=== PATIENT | male | born 1990 | race Caucasian/White ===

== ENCOUNTER 2018-06-08 14:43 | Emergency (ER) | payer OTHER, MEDICAID, SELFPAY ==
--- NOTE | 2018-06-08 14:46 | ED.ABDPAIN ---
HPI - Abdominal Pain <CASTRO Kerns - Last Filed: 06/08/18 22:22> General Chief Complaint: Abdominal Pain Stated Complaint: left side swelling and pain,no injury Time Seen by Provider: 06/08/18 14:46 History of Present Illness HPI narrative: 28-year-old healthy male here for complaint of left-sided abdominal pain over the last couple of days. He reports that he did have some diarrhea yesterday however this has resolved. No nausea or vomiting. No fevers no chills. He denies any trauma to the abdominal wall. He is tolerating p.o. intake as of today. Last bowel movement was earlier today and was normal. No urinary symptoms. No other concerns or complaints. He denies any recent travels. MD complaint: abdominal pain Related Data Home Medications Medication Instructions Recorded Confirmed No Known Home Medications 06/08/18 06/08/18 Allergies Allergy/AdvReac Type Severity Reaction Status Date / Time No Known Drug Allergies Allergy Verified 06/08/18 14:53 Review of Systems <CASTRO Kerns - Last Filed: 06/08/18 22:22> Constitutional Denies chills, Denies fever(s), Denies lethargy and Denies weakness Eyes Denies change in vision, Denies eye discharge, Denies irritation and Denies loss of vision ENT Ears, Nose, Mouth, and Throat: Denies change in voice, Denies neck pain and Denies sore throat Cardiovascular Denies chest pain, Denies irregular heart rhythm, Denies lightheadedness, Denies palpitations, Denies dyspnea, Denies dyspnea on exertion and Denies orthopnea Respiratory Denies cough, Denies dyspnea, Denies dyspnea on exertion and Denies wheezing Gastrointestinal Gastrointestinal: Reports abdominal pain and Reports diarrhea Genitourinary Denies hematuria, Denies flank pain, Denies urinary incontinence and Denies urinary urgency Musculoskeletal Denies neck pain Integumentary/Breasts Denies pruritus, Denies erythema, Denies rash and Denies wounds Neurologic Denies confusion, Denies loss of vision and Denies weakness Psychiatric Denies anxiety, Denies confusion, Denies depression, Denies homicidal ideation and Denies suicidal ideation Endocrine Denies palpitations Hematologic/Lymphatic Denies easy bruising Allergic/Immunologic Denies wheezing Exam <CASTRO Kerns - Last Filed: 06/08/18 22:22> Initial Vital Signs Initial Vital Signs: Vital Signs Temperature 98.2 F 06/08/18 14:48 Pulse Rate 91 H 06/08/18 14:48 Respiratory Rate 16 06/08/18 14:48 Blood Pressure 144/93 H 06/08/18 14:48 Pulse Oximetry 97 06/08/18 14:48 Const General: cooperative and well developed Nutritional Appearance: well nourished Orientation: alert, awake, oriented x3 and not confused [facility] Mouth: oral mucosae normal and moist mucous membranes Eyes General: appearance normal, both eyes and all related structures Eyelids: eyelids normal Conjunctivae: conjunctivae normal Sclera: sclerae normal Pupils: PERRL EOM: EOM intact bilaterally Resp Effort & Inspection: normal respiratory effort, able to speak in complete sentences, no respiratory distress and no use of accessory muscles Auscultation: clear to auscultation bilaterally, no rales, no rhonchi and no wheezes Cardio Rate: regular rate Rhythm: regular rhythm Heart Sounds: no click, no gallops, no murmurs and no rubs Pulses: normal peripheral pulses GI Inspection: non-distended Palpation: soft, no hepatosplenomegaly, No guarding, No pulsatile mass and tender (Tenderness to left upper and left lower quadrant on palpation) Auscultation: normal bowel sounds Skin General: no rashes or lesions noted, No jaundice and No petechiae <Ryan Renteria DO - Last Filed: 06/09/18 07:22> Initial Vital Signs Initial Vital Signs: Vital Signs Temperature 98.2 F 06/08/18 14:48 Pulse Rate 91 H 06/08/18 14:48 Respiratory Rate 16 06/08/18 14:48 Blood Pressure 144/93 H 06/08/18 14:48 Pulse Oximetry 97 06/08/18 14:48 Course <CASTRO Kerns - Last Filed: 06/08/18 22:22> Orders Ordered: Discontinued Medications Sodium Chloride (Normal Saline 0.9%) 1,000 mls @ 1,000 mls/hr IV BOLUS ONE Stop: 06/08/18 16:04 Last Infusion: 06/08/18 16:28 Dose: 0 mls/hr Admin: 06/08/18 15:27 Dose: 1,000 mls/hr Vital Signs - 8 hr 06/08/18 14:48 06/08/18 15:30 06/08/18 16:28 Temperature 98.2 F Pulse Rate 91 H 73 61 Respiratory Rate 16 17 18 Blood Pressure 144/93 H 135/91 H Blood Pressure [Left Arm] 140/94 H Pulse Oximetry 97 100 100 <Ryan Renteria DO - Last Filed: 06/09/18 07:22> Orders Ordered: Discontinued Medications Sodium Chloride (Normal Saline 0.9%) 1,000 mls @ 1,000 mls/hr IV BOLUS ONE Stop: 06/08/18 16:04 Last Infusion: 06/08/18 16:28 Dose: 0 mls/hr Admin: 06/08/18 15:27 Dose: 1,000 mls/hr Vital Signs - 8 hr 06/08/18 14:48 06/08/18 15:30 06/08/18 16:28 Temperature 98.2 F Pulse Rate 91 H 73 61 Respiratory Rate 16 17 18 Blood Pressure 144/93 H 135/91 H Blood Pressure [Left Arm] 140/94 H Pulse Oximetry 97 100 100 MDM - Abdominal Pain <CASTRO Kerns - Last Filed: 06/08/18 22:22> Lab Data Result diagrams: 06/08/18 15:20 06/08/18 15:20 Lab Results 06/08/18 06/08/18 Range/Units 15:20 15:20 WBC 8.2 (4.5-11.0) X10^3/uL RBC 4.88 (4.5-5.9) X10^6/uL Hgb 15.5 (13.5-17.5) g/dL Hct 44.3 (41-53) % MCV 90.9 (80-100) fL MCH 31.8 (26-34) PG MCHC 35.0 (30-36) % RDW 12.5 (11.6-14.8) % Plt Count 262 (150-400) X10^3/uL Neut % (Auto) 61.5 (50-75) % Lymph % (Auto) 28.2 (25-40) % [place] % (Auto) 7.4 (3-14) % Eos % (Auto) 2.2 (2-4) % Baso % (Auto) 0.7 (0-2) % Neut # (Auto) 5100 (1903-0785) /uL Sodium 142 (137-145) mmol/L Potassium 4.1 (3.4-5.1) mmol/L Chloride 103 (98-107) mmol/L Carbon Dioxide 26 (22-32) mmol/L BUN 12 (9-20) mg/dL Creatinine 0.90 (0.66-1.25) mg/dL Estimated GFR > 60.0 (>60) mL/min BUN/Creatinine Ratio 13.3 (6-22) Glucose 102 H (70-100) mg/dL Calcium 9.6 (8.4-10.2) mg/dL Total Bilirubin 0.6 (0.2-1.3) mg/dL AST 29 (17-59) IU/L ALT 45 (21-72) IU/L Alkaline Phosphatase 58 (38-126) U/L Total Protein 7.4 (6.3-8.2) g/dL Albumin 4.7 (3.5-5.0) g/dL Globulin 2.7 (1.7-4.1) g/dL Albumin/Globulin Ratio 1.7 (1.0-2.8) Lipase 325 H (23-300) U/L Point of care testing: Urine Dip Bedside Urine Glucose Negative Bedside Urine Bilirubin - Negative Bedside Urine Ketone - Negative Urine Specific [place] 1.015 Bedside Urine Occult Blood - Negative Bedside Urine pH 6.0 Bedside Urine Protein - Negative Bedside Urine Urobilinogen - Negative Bedside Urine Nitrite - Negative Bedside Urine Leukocytes - Negative Esterase Imaging Data CT scan - abdomen: Radiologist's impression: MDM Narrative Medical decision making narrative: CBC and Chem panel lipase were obtained were unremarkable. POC urine was negative for urinary tract infection. CT of the abdomen shows mild inflammation of the descending colon signs and symptoms presents as a viral illness. [id number] Tylenol Motrin as needed for any discomfort. Plenty of fluids and rest. Follow up with primary care provider later this week for re-evaluation. For any worsening symptoms return to the emergency room. <Ryan Renteria DO - Last Filed: 06/09/18 07:22> Lab Data Lab Results 06/08/18 06/08/18 Range/Units 15:20 15:20 WBC 8.2 (4.5-11.0) X10^3/uL RBC 4.88 (4.5-5.9) X10^6/uL Hgb 15.5 (13.5-17.5) g/dL Hct 44.3 (41-53) % MCV 90.9 (80-100) fL MCH 31.8 (26-34) PG MCHC 35.0 (30-36) % RDW 12.5 (11.6-14.8) % Plt Count 262 (150-400) X10^3/uL Neut % (Auto) 61.5 (50-75) % Lymph % (Auto) 28.2 (25-40) % [place] % (Auto) 7.4 (3-14) % Eos % (Auto) 2.2 (2-4) % Baso % (Auto) 0.7 (0-2) % Neut # (Auto) 5100 (8956-5559) /uL Sodium 142 (137-145) mmol/L Potassium 4.1 (3.4-5.1) mmol/L Chloride 103 (98-107) mmol/L Carbon Dioxide 26 (22-32) mmol/L BUN 12 (9-20) mg/dL Creatinine 0.90 (0.66-1.25) mg/dL Estimated GFR > 60.0 (>60) mL/min BUN/Creatinine Ratio 13.3 (6-22) Glucose 102 H (70-100) mg/dL Calcium 9.6 (8.4-10.2) mg/dL Total Bilirubin 0.6 (0.2-1.3) mg/dL AST 29 (17-59) IU/L ALT 45 (21-72) IU/L Alkaline Phosphatase 58 (38-126) U/L Total Protein 7.4 (6.3-8.2) g/dL Albumin 4.7 (3.5-5.0) g/dL Globulin 2.7 (1.7-4.1) g/dL Albumin/Globulin Ratio 1.7 (1.0-2.8) Lipase 325 H (23-300) U/L Point of care testing: Urine Dip Bedside Urine Glucose Negative Bedside Urine Bilirubin - Negative Bedside Urine Ketone - Negative Urine Specific [place] 1.015 Bedside Urine Occult Blood - Negative Bedside Urine pH 6.0 Bedside Urine Protein - Negative Bedside Urine Urobilinogen - Negative Bedside Urine Nitrite - Negative Bedside Urine Leukocytes - Negative Esterase Discharge Plan Departure Patient Disposition: Home, Self-Care Clinical Impression: Colitis Discharge Date/Time: 06/08/18 16:30 Interventions: ED Discharge Assessment Last Done: 06/08/18 16:28 Instructions: DI for Abdominal Pain-Adult Activity Restrictions/Additional Instructions: Laboratory results today were unremarkable. CT the abdomen shows mild inflammation to the descending colon indicating colitis most likely viral illness that should resolve on its own. Use [id number] Tylenol or Motrin as needed for any discomfort. Follow up with her primary care provider later this week for re-evaluation. Plenty of fluids and rest. For any worsening symptoms return to the emergency room. Prescriptions: No Action No Known Home Medications RF: 0 Referrals: [facility] [Provider Group] <Ryan Renteria DO - Last Filed: 06/09/18 07:22> Cosjohnathan ED Attending Ch[place] Attestation: I was available for consultation during this patient's emergency department encounter
[2018-06-08 14:48] VITALS: BP 144/93; PULSE 91; RESP 16; TEMP 36.8; O2SAT 97; BMI 22.8
--- NOTE | 2018-06-08 15:05 | DI.CT.S_ITS ---
PROCEDURE: CT ABDOMEN PELVIS W CON INDICATIONS: Left upper and left lower quadrant pain TECHNIQUE: After the administration of intravenous contrast, 5 mm thick sections acquired from the diaphragm to the symphysis. 5 mm coronal and sagittal reformats were acquired. For radiation dose reduction, the following was used: automated exposure control, adjustment of mA and/or kV according to patient size. COMPARISON: None. FINDINGS: Image quality: Excellent. ABDOMEN: Lung bases: Lung bases are clear. Heart size is normal. Solid organs: Liver is normal in size, hypodense in attenuation. Gallbladder is contracted. Biliary system is non dilated. Pancreas enhances normally. Spleen is normal in size and enhancement, 8.5 cm craniocaudal. No adrenal nodules. The right kidney is atrophic with diffuse renal cortical thinning. thinning. The right kidney measures 8.9 cm, the left measures 12.7 cm. No hydronephrosis. No perinephric fat stranding. Peritoneum and bowel: Small bowel loops demonstrate normal wall thickness and caliber. Normal appendix. The descending and rectosigmoid colon shows a mild degree of diffuse wall thickening. No focal fat stranding or diverticular disease. No free fluid or air. Nodes and vessels: No retroperitoneal or mesenteric adenopathy by size criteria. Aorta and inferior vena cava are normal in size. Miscellaneous: No ventral hernias. PELVIS: Genitourinary: Bladder wall thickness is normal. Prostate and seminal vesicles appear normal. Miscellaneous: No inguinal hernias or adenopathy. Bones: No suspicious bony lesions. No vertebral body compression fractures. IMPRESSION: 1. Possible nonspecific colitis from the splenic flexure through the rectosigmoid, all showing non-distention with mild wall thickening and edema. 2. Hepatic steatosis. 3. Mild right renal atrophy. Dictated by: Randal Williamson M.D. on 06/08/2018 at 15:43 Approved by: Randal Williamson M.D. on 06/08/2018 at 15:52
[2018-06-08 15:26] LABS: Add Manual Diff / Slide Review NO; Basophils Percent Auto 0.7 % (0-2); Eosinophils Percent Auto 2.2 % (2-4); Hematocrit 44.3 % (41-53); Hemoglobin 15.5 g/dL (13.5-17.5); Lymphocytes Percent Auto 28.2 % (25-40); Mean Corpuscular Hemoglobin 31.8 PG (26-34); Mean Corpuscular Volume 90.9 fL (80-100); Monocytes Percent Auto 7.4 % (3-14); Neutrophils Absolute Auto 5100 /uL (3000-5900); Neutrophils Percent Auto 61.5 % (50-75); Platelet Count 262 X10^3/uL (150-400); Red Blood Cell Count 4.88 X10^6/uL (4.5-5.9); Red Cell Distribution Width 12.5 % (11.6-14.8); White Blood Cell Count 8.2 X10^3/uL (4.5-11.0)
[2018-06-08] MEDS: SODIUM CHLORIDE 0.9% 1,000 ML 1000 ML IV (15:27)
[2018-06-08 15:30] VITALS: BP 140/94; PULSE 73; RESP 17; O2SAT 100
[2018-06-08 15:56] LABS: Alanine Aminotransferase 45 IU/L (21-72); Albumin 4.7 g/dL (3.5-5.0); Albumin Globulin Ratio 1.7 (1.0-2.8); Alkaline Phosphatase 58 U/L (38-126); Aspartate Aminotransferase 29 IU/L (17-59); BUN Creatinine Ratio 13.3 (6-22); Bilirubin Total 0.6 mg/dL (0.2-1.3); Blood Urea Nitrogen 12 mg/dL (9-20); Calcium 9.6 mg/dL (8.4-10.2); Carbon Dioxide 26 mmol/L (22-32); Chloride 103 mmol/L (98-107); Estimated Glomerular Filt Rate > 60.0 mL/min (>60); Globulin 2.7 g/dL (1.7-4.1); Glucose 102 mg/dL (70-100); HEMOLYSIS < 15 (0-50); Lipase 325 U/L (23-300); Potassium 4.1 mmol/L (3.4-5.1); Sodium 142 mmol/L (137-145); Total Protein 7.4 g/dL (6.3-8.2)
--- NOTE | 2018-06-08 16:08 | ED_ITS ---
HPI - Abdominal Pain <CASTRO Kerns - Last Filed: 06/08/18 22:22> General Chief Complaint: Abdominal Pain Stated Complaint: left side swelling and pain,no injury Time Seen by Provider: 06/08/18 14:46 History of Present Illness HPI narrative: 28-year-old healthy male here for complaint of left-sided abdominal pain over the last couple of days. He reports that he did have some diarrhea yesterday however this has resolved. No nausea or vomiting. No fevers no chills. He denies any trauma to the abdominal wall. He is tolerating p.o. intake as of today. Last bowel movement was earlier today and was normal. No urinary symptoms. No other concerns or complaints. He denies any recent travels. MD complaint: abdominal pain Related Data Home Medications Medication Instructions Recorded Confirmed No Known Home Medications 06/08/18 06/08/18 Allergies Allergy/AdvReac Type Severity Reaction Status Date / Time No Known Drug Allergies Allergy Verified 06/08/18 14:53 Review of Systems <CASTRO Kerns - Last Filed: 06/08/18 22:22> Constitutional Denies chills, Denies fever(s), Denies lethargy and Denies weakness Eyes Denies change in vision, Denies eye discharge, Denies irritation and Denies loss of vision ENT Ears, Nose, Mouth, and Throat: Denies change in voice, Denies neck pain and Denies sore throat Cardiovascular Denies chest pain, Denies irregular heart rhythm, Denies lightheadedness, Denies palpitations, Denies dyspnea, Denies dyspnea on exertion and Denies orthopnea Respiratory Denies cough, Denies dyspnea, Denies dyspnea on exertion and Denies wheezing Gastrointestinal Gastrointestinal: Reports abdominal pain and Reports diarrhea Genitourinary Denies hematuria, Denies flank pain, Denies urinary incontinence and Denies urinary urgency Musculoskeletal Denies neck pain Integumentary/Breasts Denies pruritus, Denies erythema, Denies rash and Denies wounds Neurologic Denies confusion, Denies loss of vision and Denies weakness Psychiatric Denies anxiety, Denies confusion, Denies depression, Denies homicidal ideation and Denies suicidal ideation Endocrine Denies palpitations Hematologic/Lymphatic Denies easy bruising Allergic/Immunologic Denies wheezing Exam <CASTRO Kerns - Last Filed: 06/08/18 22:22> Initial Vital Signs Initial Vital Signs: Vital Signs Temperature 98.2 F 06/08/18 14:48 Pulse Rate 91 H 06/08/18 14:48 Respiratory Rate 16 06/08/18 14:48 Blood Pressure 144/93 H 06/08/18 14:48 Pulse Oximetry 97 06/08/18 14:48 Const General: cooperative and well developed Nutritional Appearance: well nourished Orientation: alert, awake, oriented x3 and not confused [facility] Mouth: oral mucosae normal and moist mucous membranes Eyes General: appearance normal, both eyes and all related structures Eyelids: eyelids normal Conjunctivae: conjunctivae normal Sclera: sclerae normal Pupils: PERRL EOM: EOM intact bilaterally Resp Effort & Inspection: normal respiratory effort, able to speak in complete sentences, no respiratory distress and no use of accessory muscles Auscultation: clear to auscultation bilaterally, no rales, no rhonchi and no wheezes Cardio Rate: regular rate Rhythm: regular rhythm Heart Sounds: no click, no gallops, no murmurs and no rubs Pulses: normal peripheral pulses GI Inspection: non-distended Palpation: soft, no hepatosplenomegaly, No guarding, No pulsatile mass and tender (Tenderness to left upper and left lower quadrant on palpation) Auscultation: normal bowel sounds Skin General: no rashes or lesions noted, No jaundice and No petechiae <Ryan Renteria DO - Last Filed: 06/09/18 07:22> Initial Vital Signs Initial Vital Signs: Vital Signs Temperature 98.2 F 06/08/18 14:48 Pulse Rate 91 H 06/08/18 14:48 Respiratory Rate 16 06/08/18 14:48 Blood Pressure 144/93 H 06/08/18 14:48 Pulse Oximetry 97 06/08/18 14:48 Course <CASTRO Kerns - Last Filed: 06/08/18 22:22> Orders Ordered: Discontinued Medications Sodium Chloride (Normal Saline 0.9%) 1,000 mls @ 1,000 mls/hr IV BOLUS ONE Stop: 06/08/18 16:04 Last Infusion: 06/08/18 16:28 Dose: 0 mls/hr Admin: 06/08/18 15:27 Dose: 1,000 mls/hr Vital Signs - 8 hr 06/08/18 14:48 06/08/18 15:30 06/08/18 16:28 Temperature 98.2 F Pulse Rate 91 H 73 61 Respiratory Rate 16 17 18 Blood Pressure 144/93 H 135/91 H Blood Pressure [Left Arm] 140/94 H Pulse Oximetry 97 100 100 <Ryan Renteria DO - Last Filed: 06/09/18 07:22> Orders Ordered: Discontinued Medications Sodium Chloride (Normal Saline 0.9%) 1,000 mls @ 1,000 mls/hr IV BOLUS ONE Stop: 06/08/18 16:04 Last Infusion: 06/08/18 16:28 Dose: 0 mls/hr Admin: 06/08/18 15:27 Dose: 1,000 mls/hr Vital Signs - 8 hr 06/08/18 14:48 06/08/18 15:30 06/08/18 16:28 Temperature 98.2 F Pulse Rate 91 H 73 61 Respiratory Rate 16 17 18 Blood Pressure 144/93 H 135/91 H Blood Pressure [Left Arm] 140/94 H Pulse Oximetry 97 100 100 MDM - Abdominal Pain <CASTRO Kerns - Last Filed: 06/08/18 22:22> Lab Data Result diagrams: 06/08/18 15:20 06/08/18 15:20 Lab Results 06/08/18 06/08/18 Range/Units 15:20 15:20 WBC 8.2 (4.5-11.0) X10^3/uL RBC 4.88 (4.5-5.9) X10^6/uL Hgb 15.5 (13.5-17.5) g/dL Hct 44.3 (41-53) % MCV 90.9 (80-100) fL MCH 31.8 (26-34) PG MCHC 35.0 (30-36) % RDW 12.5 (11.6-14.8) % Plt Count 262 (150-400) X10^3/uL Neut % (Auto) 61.5 (50-75) % Lymph % (Auto) 28.2 (25-40) % [place] % (Auto) 7.4 (3-14) % Eos % (Auto) 2.2 (2-4) % Baso % (Auto) 0.7 (0-2) % Neut # (Auto) 5100 (4467-5934) /uL Sodium 142 (137-145) mmol/L Potassium 4.1 (3.4-5.1) mmol/L Chloride 103 (98-107) mmol/L Carbon Dioxide 26 (22-32) mmol/L BUN 12 (9-20) mg/dL Creatinine 0.90 (0.66-1.25) mg/dL Estimated GFR > 60.0 (>60) mL/min BUN/Creatinine Ratio 13.3 (6-22) Glucose 102 H (70-100) mg/dL Calcium 9.6 (8.4-10.2) mg/dL Total Bilirubin 0.6 (0.2-1.3) mg/dL AST 29 (17-59) IU/L ALT 45 (21-72) IU/L Alkaline Phosphatase 58 (38-126) U/L Total Protein 7.4 (6.3-8.2) g/dL Albumin 4.7 (3.5-5.0) g/dL Globulin 2.7 (1.7-4.1) g/dL Albumin/Globulin Ratio 1.7 (1.0-2.8) Lipase 325 H (23-300) U/L Point of care testing: Urine Dip Bedside Urine Glucose Negative Bedside Urine Bilirubin - Negative Bedside Urine Ketone - Negative Urine Specific [place] 1.015 Bedside Urine Occult Blood - Negative Bedside Urine pH 6.0 Bedside Urine Protein - Negative Bedside Urine Urobilinogen - Negative Bedside Urine Nitrite - Negative Bedside Urine Leukocytes - Negative Esterase Imaging Data CT scan - abdomen: Radiologist's impression: MDM Narrative Medical decision making narrative: CBC and Chem panel lipase were obtained were unremarkable. POC urine was negative for urinary tract infection. CT of the abdomen shows mild inflammation of the descending colon signs and symptoms presents as a viral illness. [id number] Tylenol Motrin as needed for any discomfort. Plenty of fluids and rest. Follow up with primary care provider later this week for re-evaluation. For any worsening symptoms return to the emergency room. <Ryan Renteria DO - Last Filed: 06/09/18 07:22> Lab Data Lab Results 06/08/18 06/08/18 Range/Units 15:20 15:20 WBC 8.2 (4.5-11.0) X10^3/uL RBC 4.88 (4.5-5.9) X10^6/uL Hgb 15.5 (13.5-17.5) g/dL Hct 44.3 (41-53) % MCV 90.9 (80-100) fL MCH 31.8 (26-34) PG MCHC 35.0 (30-36) % RDW 12.5 (11.6-14.8) % Plt Count 262 (150-400) X10^3/uL Neut % (Auto) 61.5 (50-75) % Lymph % (Auto) 28.2 (25-40) % [place] % (Auto) 7.4 (3-14) % Eos % (Auto) 2.2 (2-4) % Baso % (Auto) 0.7 (0-2) % Neut # (Auto) 5100 (4612-0822) /uL Sodium 142 (137-145) mmol/L Potassium 4.1 (3.4-5.1) mmol/L Chloride 103 (98-107) mmol/L Carbon Dioxide 26 (22-32) mmol/L BUN 12 (9-20) mg/dL Creatinine 0.90 (0.66-1.25) mg/dL Estimated GFR > 60.0 (>60) mL/min BUN/Creatinine Ratio 13.3 (6-22) Glucose 102 H (70-100) mg/dL Calcium 9.6 (8.4-10.2) mg/dL Total Bilirubin 0.6 (0.2-1.3) mg/dL AST 29 (17-59) IU/L ALT 45 (21-72) IU/L Alkaline Phosphatase 58 (38-126) U/L Total Protein 7.4 (6.3-8.2) g/dL Albumin 4.7 (3.5-5.0) g/dL Globulin 2.7 (1.7-4.1) g/dL Albumin/Globulin Ratio 1.7 (1.0-2.8) Lipase 325 H (23-300) U/L Point of care testing: Urine Dip Bedside Urine Glucose Negative Bedside Urine Bilirubin - Negative Bedside Urine Ketone - Negative Urine Specific [place] 1.015 Bedside Urine Occult Blood - Negative Bedside Urine pH 6.0 Bedside Urine Protein - Negative Bedside Urine Urobilinogen - Negative Bedside Urine Nitrite - Negative Bedside Urine Leukocytes - Negative Esterase Discharge Plan Departure Patient Disposition: Home, Self-Care Clinical Impression: Colitis Discharge Date/Time: 06/08/18 16:30 Interventions: ED Discharge Assessment Last Done: 06/08/18 16:28 Instructions: DI for Abdominal Pain-Adult Activity Restrictions/Additional Instructions: Laboratory results today were unremarkable. CT the abdomen shows mild inflammation to the descending colon indicating colitis most likely viral illness that should resolve on its own. Use [id number] Tylenol or Motrin as needed for any discomfort. Follow up with her primary care provider later this week for re-evaluation. Plenty of fluids and rest. For any worsening symptoms return to the emergency room. Prescriptions: No Action No Known Home Medications RF: 0 Referrals: [facility] [Provider Group] <Ryan Renteria DO - Last Filed: 06/09/18 07:22> Cosjohnathan ED Attending [place] Attestation: I was available for consultation during this patient's emergency department encounter
[2018-06-08 16:28] VITALS: BP 135/91; PULSE 61; RESP 18; O2SAT 100
== END 2018-06-08 16:30 | disposition home or self-care (01) ==
PROVIDERS: Emergency Provider Nurse Practitioner Family
DX: K52.9 Noninfective gastroenteritis and colitis, unspecified (principal)
CPT/HCPCS: 36591; 74177; 80053; 81003; 83690; 85025; 96360; 99283; 99285; Q9967

== ENCOUNTER 2023-02-23 20:48 | Inpatient (IN) | payer OTHER, MEDICAID, SELFPAY ==
[2023-02-23] VITALS (11 sets, daily range): BP systolic 147–204; BP diastolic 96–101; PULSE 91–126; RESP 16–38; TEMP 36.6; O2SAT 92–100
[2023-02-23] MEDS: ALBUTEROL/IPRATROPIUM 3 ML AMPUL INH ×3 (21:09)
--- NOTE | 2023-02-23 21:10 | DI.RAD.S_ITS ---
PROCEDURE: XR CHEST 1V INDICATIONS: SOB TECHNIQUE: One view of the chest was acquired. COMPARISON: None. FINDINGS: Surgical changes and devices: None. Lungs and pleura: Lungs are clear. There is hyperinflation of the lungs with flattening of the hemidiaphragms compatible with COPD. No pleural effusions or pneumothorax. Mediastinum: Mediastinal contours appear normal. Heart size is normal. Bones and chest wall: No suspicious bony lesions. Overlying soft tissues appear unremarkable. IMPRESSION: 1. No acute cardiopulmonary disease. 2. Findings compatible with COPD. Dictated by: [place] S[place] M.D. on 02/23/2023 at 21:25 Approved by: [place] Sanches M.D. on 02/23/2023 at 21:25
--- NOTE | 2023-02-23 21:11 | ED_ITS ---
HPI - General Adult General Chief complaint: Shortness of Breath/Dyspnea Stated complaint: Difficulty breathing Time Seen by Provider: 02/23/23 21:06 Source: patient Mode of arrival: Ambulatory Limitations: no limitations History of Present Illness HPI narrative: Patient is a 32-year-old male. States that he does have a history of asthma but has not had any issues with it for some time. He states he was ?born with it?. Three days of shortness of breath with cough and chest discomfort. Has not tried anything for symptoms. No lower extremity swelling. No recent travel. No recent antibiotics. Related Data Home Medications Medication Instructions Recorded Confirmed No Known Home Medications 06/08/18 06/08/18 Allergies Allergy/AdvReac Type Severity Reaction Status Date / Time No Known Drug Allergies Allergy Verified 06/08/18 14:53 Review of Systems Review of Systems ROS Unobtainable: All systems reviewed & are unremarkable except as noted in HPI and below Respiratory Respiratory: Reports system reviewed and no additional complaints, except as documented Patient History Social History Smoking Status: Current every day smoker Smoking Status: Current every day smoker alcohol intake frequency: a few times a week Substance Use Type: marijuana Exam Initial Vital Signs Initial Vital Signs: Vital Signs Respiratory Rate 35 H 02/23/23 21:05 Pulse Oximetry 92 02/23/23 21:05 Oxygen Delivery Method Room Air 02/23/23 21:05 Const General: cooperative and No ill appearing HENMT Head: normal to inspection and normocephalic Resp Effort & Inspection: labored, no retractions and tachypneic Auscultation: diminished lung sounds, rhonchi and wheezes Cardio Rate: regular rate Rhythm: regular rhythm GI Inspection: normal to inspection Skin General: no rashes or lesions noted Neuro General: patient alert, patient awake and moves all extremities Extrem General: normal to inspection and capillary refill normal Psych Appearance: grossly normal and well kempt Course Orders Ordered: ED Orders 02/23/23 21:10 XR chest 1V Stat EKG-12 Lead Stat RT Consult Eval and Treat Now 02/23/23 21:15 Complete Blood Count AUTO DIFF Stat Comprehensive Metabolic Panel Stat Lipase Stat Procalcitonin Stat Troponin & CK Cardiac Panel Stat 02/23/23 21:25 Respiratory Panel (Film Array) Stat 02/23/23 23:30 CT angio chest PE protocol Stat 02/24/23 00:08 Blood Culture Stat 02/24/23 00:21 Sputum Culture Stat Discontinued Medications Albuterol (Albuterol 2.5 Mg/3 Ml Neb (Adult)) 20 mg INH NOW ONE Stop: 02/23/23 21:27 Last Admin: 02/23/23 21:35 Dose: 20 mg Documented By: KEYSHA Albuterol/Ipratropium (Albuterol/Ipratropium 3 Ml Ampul) 3 ml INH NOW ONE Stop: 02/23/23 21:10 Last Admin: 02/23/23 21:09 Dose: 3 ml Documented By: SERGEY Albuterol/Ipratropium (Albuterol/Ipratropium 3 Ml Ampul) 3 ml INH NOW ONE Stop: 02/23/23 21:11 Last Admin: 02/23/23 21:09 Dose: 3 ml Documented By: SERGEY Albuterol/Ipratropium (Albuterol/Ipratropium 3 Ml Ampul) 3 ml INH NOW ONE Stop: 02/23/23 21:11 Last Admin: 02/23/23 21:09 Dose: 3 ml Documented By: SERGEY Magnesium Sulfate (Magnesium Sulfate) 2 gm in 50 mls @ 25 mls/hr IV NOW ONE Stop: 02/23/23 23:37 Last Infusion: 02/23/23 23:26 Dose: 0 mls/hr Documented By: NEREIDA Co-signed By: AYANNA Admin: 02/23/23 21:45 Dose: 25 mls/hr Documented By: IVORY Co-signed By: AMOL Lorazepam (Lorazepam 2 Mg/Ml Inj) 1 mg IV NOW ONE Stop: 02/23/23 21:41 Last Admin: 02/23/23 21:45 Dose: 1 mg Documented By: IVORY Lorazepam (Lorazepam 2 Mg/Ml Inj) 1 mg IV NOW ONE Stop: 02/23/23 22:06 Last Admin: 02/23/23 22:10 Dose: 1 mg Documented By: NEREIDA Methylprednisolone (Methylprednisolone 125 Mg/2 Ml Vial) 125 mg IV NOW ONE Stop: 02/23/23 21:10 Last Admin: 02/23/23 21:14 Dose: 125 mg Documented By: IVORY Vital Signs Vital signs: Vital Signs - 8 hr 02/23/23 21:09 02/23/23 21:05 02/23/23 21:15 Temperature 98 F Pulse Rate 91 H 91 H Respiratory Rate 24 35 H 34 H Blood Pressure 152/99 H Pulse Oximetry 94 92 92 Oxygen Delivery Method Room Air Room Air Room Air Oxygen Flow Rate 0 Fraction of Inspired Oxygen 21 02/23/23 21:54 02/23/23 21:18 02/23/23 21:30 Temperature Pulse Rate 96 H 96 H Respiratory Rate 30 H 26 H Blood Pressure Pulse Oximetry 96 95 Oxygen Delivery Method BiPAP Oxygen Flow Rate Fraction of Inspired Oxygen 40 02/23/23 21:49 02/23/23 21:49 02/23/23 22:00 Temperature Pulse Rate 113 H 115 H Respiratory Rate 29 H 31 H Blood Pressure 204/98 H Pulse Oximetry 100 95 Oxygen Delivery Method BiPAP Oxygen Flow Rate Fraction of Inspired Oxygen 02/23/23 22:20 02/23/23 22:23 02/23/23 22:23 Temperature Pulse Rate 126 H Respiratory Rate 38 H Blood Pressure 147/96 H Pulse Oximetry 94 Oxygen Delivery Method Oxygen Flow Rate Fraction of Inspired Oxygen 80 02/23/23 22:30 02/23/23 22:30 02/23/23 23:00 Temperature Pulse Rate 124 H Respiratory Rate 33 H Blood Pressure 152/96 H 149/101 H Pulse Oximetry 96 Oxygen Delivery Method Oxygen Flow Rate Fraction of Inspired Oxygen 02/23/23 23:00 Temperature Pulse Rate 123 H Respiratory Rate 30 H Blood Pressure Pulse Oximetry 97 Oxygen Delivery Method BiPAP Oxygen Flow Rate Fraction of Inspired Oxygen Medical Decision Making Lab Data 02/23/23 21:15 02/23/23 21:15 Labs: Lab Results 02/23/23 02/23/23 02/23/23 Range/Units 21:15 21:15 21:15 WBC 11.8 H (4.5-11.0) X10^3/uL RBC 5.35 (4.5-5.9) X10^6/uL Hgb 16.2 (13.5-17.5) g/dL Hct 47.7 (41-53) % MCV 89.2 (80-100) fL MCH 30.3 (26-34) PG MCHC 33.9 (30-36) % RDW 13.1 (11.6-14.8) % Plt Count 334 (150-400) X10^3/uL Neut % (Auto) 56.9 (50-75) % Lymph % (Auto) 22.8 L (25-40) % [place] % (Auto) 8.7 (3-14) % Eos % (Auto) 11.1 H (2-4) % Baso % (Auto) 0.5 (0-2) % Neut # (Auto) 6700 (0816-9443) /uL Lymph # (Auto) 2700 (3915-5007) /uL [place] # (Auto) 1000 H (0-900) /uL Eos # (Auto) 1300 H (0-450) /uL Baso # (Auto) 100 (0-100) /uL Sodium 141 (137-145) mmol/L Potassium 3.5 (3.4-5.1) mmol/L Chloride 102 (98-107) mmol/L Carbon Dioxide 26 (22-32) mmol/L BUN 8 L (9-20) mg/dL Creatinine 0.95 (0.66-1.25) mg/dL Estimated GFR > 60 (>60) mL/min BUN/Creatinine Ratio 8.4 (6-22) Glucose 100 (70-100) mg/dL Calcium 9.2 (8.4-10.2) mg/dL Total Bilirubin 0.7 (0.2-1.3) mg/dL AST 24 (17-59) IU/L ALT 23 (<50) IU/L Alkaline Phosphatase 72 (38-126) U/L Total Creatine Kinase 106 (55-170) U/L CK-MB (CK-2) 0.93 (<2.37) ng/mL CK-MB (CK-2) Rel Index 0.9 L (1.5-5.0) % Troponin I < 0.012 (0.01-0.034) ng/mL Total Protein 8.1 (6.3-8.2) g/dL Albumin 4.8 (3.5-5.0) g/dL Globulin 3.3 (1.7-4.1) g/dL Albumin/Globulin Ratio 1.5 (1.0-2.8) Lipase 61 (23-300) U/L Procalcitonin 0.06 (<0.5) ng/mL Chlamy pneumoniae PCR (Not Detect) Adenovirus (PCR) (Not Detect) B. pertussis DNA (PCR) (Not Detecte) B.parapertussis DNA PCR (Not Detecte) Coronavirus OC43 (PCR) (Not Detect) Coronavirus HKU1 (PCR) (Not Detect) Coronavirus 229E (PCR) (Not Detect) SARS-CoV-2 (PCR) (Not Detecte) Coronavirus NL63 (PCR) (Not Detect) Human Metapneumovir PCR (Not Detect) Influenza Type A (PCR) (Not Detect) Influenza Type B (PCR) (Not Detect) M. pneumoniae (PCR) (Not Detect) Parainfluenza 1 (PCR) (Not Detect) Parainfluenza 2 (PCR) (Not Detect) Parainfluenza 3 (PCR) (Not Detect) Parainfluenza 4 (PCR) (Not Detect) RSV (PCR) (Not Detect) Entero/Rhino (PCR) (Not Detect) 02/23/23 Range/Units 21:25 WBC (4.5-11.0) X10^3/uL RBC (4.5-5.9) X10^6/uL Hgb (13.5-17.5) g/dL Hct (41-53) % MCV (80-100) fL MCH (26-34) PG MCHC (30-36) % RDW (11.6-14.8) % Plt Count (150-400) X10^3/uL Neut % (Auto) (50-75) % Lymph % (Auto) (25-40) % [place] % (Auto) (3-14) % Eos % (Auto) (2-4) % Baso % (Auto) (0-2) % Neut # (Auto) (1308-1791) /uL Lymph # (Auto) (9894-8094) /uL [place] # (Auto) (0-900) /uL Eos # (Auto) (0-450) /uL Baso # (Auto) (0-100) /uL Sodium (137-145) mmol/L Potassium (3.4-5.1) mmol/L Chloride (98-107) mmol/L Carbon Dioxide (22-32) mmol/L BUN (9-20) mg/dL Creatinine (0.66-1.25) mg/dL Estimated GFR (>60) mL/min BUN/Creatinine Ratio (6-22) Glucose (70-100) mg/dL Calcium (8.4-10.2) mg/dL Total Bilirubin (0.2-1.3) mg/dL AST (17-59) IU/L ALT (<50) IU/L Alkaline Phosphatase (38-126) U/L Total Creatine Kinase (55-170) U/L CK-MB (CK-2) (<2.37) ng/mL CK-MB (CK-2) Rel Index (1.5-5.0) % Troponin I (0.01-0.034) ng/mL Total Protein (6.3-8.2) g/dL Albumin (3.5-5.0) g/dL Globulin (1.7-4.1) g/dL Albumin/Globulin Ratio (1.0-2.8) Lipase (23-300) U/L Procalcitonin (<0.5) ng/mL Chlamy pneumoniae PCR Not detected (Not Detect) Adenovirus (PCR) Not detected (Not Detect) B. pertussis DNA (PCR) Not detected (Not Detecte) B.parapertussis DNA PCR Not detected (Not Detecte) Coronavirus OC43 (PCR) Not detected (Not Detect) Coronavirus HKU1 (PCR) Not detected (Not Detect) Coronavirus 229E (PCR) Not detected (Not Detect) SARS-CoV-2 (PCR) Not detected (Not Detecte) Coronavirus NL63 (PCR) Not detected (Not Detect) Human Metapneumovir PCR Not detected (Not Detect) Influenza Type A (PCR) Not detected (Not Detect) Influenza Type B (PCR) Not detected (Not Detect) M. pneumoniae (PCR) Not detected (Not Detect) Parainfluenza 1 (PCR) Not detected (Not Detect) Parainfluenza 2 (PCR) Not detected (Not Detect) Parainfluenza 3 (PCR) Not detected (Not Detect) Parainfluenza 4 (PCR) Not detected (Not Detect) RSV (PCR) Not detected (Not Detect) Entero/Rhino (PCR) Detected H (Not Detect) Imaging Data Chest x-ray: Radiologist's Impression: PROCEDURE:? XR CHEST 1V ? INDICATIONS:? SOB ? TECHNIQUE:? One view of the chest was acquired.? ? COMPARISON:? None. ? FINDINGS:? ? Surgical changes and devices:? None.? ? Lungs and pleura:? Lungs are clear. There is hyperinflation of the lungs with flattening of the hemidiaphragms compatible with COPD. ? No pleural effusions or pneumothorax.? ? Mediastinum:? Mediastinal contours appear normal.? Heart size is normal.? ? Bones and chest wall:? No suspicious bony lesions.? Overlying soft tissues appear unremarkable.? ? IMPRESSION:? ? 1.? No acute cardiopulmonary disease. ? 2. Findings compatible with COPD CT scan - chest: Radiologist's Impression: PROCEDURE:? CT ANGIO CHEST PE PROTOCOL ? INDICATIONS:? SOB with hypoxia and recent surgery ? TECHNIQUE:? After the administration of intravenous contrast, 2 mm thick sections acquired from the pulmonary apices to the posterior costophrenic angles.? 3-dimensional maximum in tensity projection (MIP) coronal and sagittal reformats were then acquired through the thorax.? For radiation dose reduction, the following was used:? automated exposure control, adjustment of mA and/or kV according to patient size.? ? COMPARISON:? None. ? FINDINGS:? Image quality:? There is motion artifact limiting evaluation.? ? Pulmonary arteries:? Pulmonary arteries are normal in size, and demonstrate no intraluminal filling defects to suggest central pulmonary embolism.? ? Lower Neck: No lymphadenopathy by size criteria. Thyroid:? Visualized thyroid demonstrates no discrete nodules. Axillae: No lymphadenopathy by size criteria. Chest Wall:? Unremarkable.? Bones: Visualized osseous structures demonstrate no suspicious lesions. ? Lungs and Airways:? There are patchy indistinct areas of ground-glass opacity in the lungs bilaterally.? The trachea and central airways are patent. Pleura: No pneumothorax or pleural effusions.? ? Heart: Heart size is normal.? No pericardial effusion. Thoracic Vessels: The thoracic aorta is normal in size.? Mediastinum and Tatyana: No lymphadenopathy by size criteria.? There is residual thymus in the anterior mediastinum. Esophagus: No wall thickening. No hiatal hernia. ? Abdomen:? Visualized upper abdominal solid organs appear normal in the early arterial phase of enhancement.? ? IMPRESSION:? ? 1. No evidence of pulmonary embolism. ? 2. No acute airspace consolidation.? MDM Narrative Medical decision making narrative: Patient arrived in significant respiratory distress. Oxygen saturations were in the low 90s. Had coarse breath sounds bilateral with wheezing. Could not speak in complete sentences. States he does have a history of asthma but has not had any issues for quite a long time. He recently had a orthopedic procedure performed but that was several weeks ago. He is having chest discomfort. Symptoms been going on for the past couple days. No fevers. Patient initially improved somewhat with nebulizer treatments although while he was receiving nebulizer treatments he did become somewhat worse. He was placed on BiPAP. He did have quite a bit of anxiety. Was given Ativan. He tolerated the BiPAP very well. The Ativan seemed to work as well. He is receiving continuous nebulizer treatments. He is already received 3 DuoNebs. Has been administered steroids. Was given 2 g of magnesium. His respiratory panel was positive for rhino virus. No antibiotics were administered. While he was on the BiPAP he stated that he felt much better. The continuous nebulizer was taking quite a bit of time to improve. He was taken off of the BiPAP and the nebulizer was continued. Shortly after he was taken off the BiPAP his oxygen saturations dropped down to the mid to high 80s. He still stated that he felt much better than when he came in. He was then placed on heated high-flow along with receiving the nebulizer treatment. His oxygen saturations are now greater than 92%. Given his presenting symptoms and the lack of a asthma attack in many years CT scan was performed. This did not show any signs of pulmonary embolism nor focal consolidation. Given the fact that he is still requiring oxygen by high-flow nasal cannula patient does require admission to the hospital. I discussed the case with ROXANE Kolb the night hospitalist who will admit. I discussed the need for admission with the patient and family at bedside. They expressed und erstanding and agreement as well. Critical Care Time Critical Care Time Critical Care Time: Yes Total Critical Care Time: 40 Attestation: The high probability of a clinically significant, sudden or life threatening deterioration of the [respiratory] system(s) required my full and direct attention, intervention and personal management. The aggregate critical care time was [40] minutes. This time is in addition to time spent performing reported procedures but includes the following: [x] Data Review and interpretation [x] Patient assessment and monitoring of vital signs [x] Documentation [x] Medication orders and management Discharge Plan Departure Patient Disposition: Admitted As Inpatient Clinical Impression: Asthma with exacerbation, Rhinovirus infection, Hypoxia Admit Date/Time: 02/24/23 00:31 Admit Provider: Abiola Kolb
[2023-02-23] MEDS: methylPREDNISolone 125 MG/2 ML VIAL IV (21:14)
[2023-02-23 21:30] LABS: Add Manual Diff / Slide Review NO; Basophils Absolute Auto 100 /uL (0-100); Basophils Percent Auto 0.5 % (0-2); Eosinophils Absolute Auto 1300 /uL (0-450); Eosinophils Percent Auto 11.1 % (2-4); Hematocrit 47.7 % (41-53); Hemoglobin 16.2 g/dL (13.5-17.5); Lymphocytes Absolute Auto 2700 /uL (1100-4500); Lymphocytes Percent Auto 22.8 % (25-40); Mean Corpuscular HGB Conc 33.9 % (30-36); Mean Corpuscular Hemoglobin 30.3 PG (26-34); Mean Corpuscular Volume 89.2 fL (80-100); Monocytes Absolute Auto 1000 /uL (0-900); Monocytes Percent Auto 8.7 % (3-14); Neutrophils Absolute Auto 6700 /uL (1500-7000); Neutrophils Percent Auto 56.9 % (50-75); Platelet Count 334 X10^3/uL (150-400); Red Blood Cell Count 5.35 X10^6/uL (4.5-5.9); Red Cell Distribution Width 13.1 % (11.6-14.8); White Blood Cell Count 11.8 X10^3/uL (4.5-11.0)
[2023-02-23 21:34] LABS: Alanine Aminotransferase 23 IU/L (<50); Albumin 4.8 g/dL (3.5-5.0); Albumin Globulin Ratio 1.5 (1.0-2.8); Alkaline Phosphatase 72 U/L (38-126); Aspartate Aminotransferase 24 IU/L (17-59); BUN Creatinine Ratio 8.4 (6-22); Bilirubin Total 0.7 mg/dL (0.2-1.3); Blood Urea Nitrogen 8 mg/dL (9-20); Calcium 9.2 mg/dL (8.4-10.2); Carbon Dioxide 26 mmol/L (22-32); Chloride 102 mmol/L (98-107); Creatine Kinase 106 U/L (55-170); Estimated Glomerular Filt Rate > 60 mL/min (>60); Globulin 3.3 g/dL (1.7-4.1); Glucose 100 mg/dL (70-100); HEMOLYSIS < 15 (0-50); Lipase 61 U/L (23-300); Potassium 3.5 mmol/L (3.4-5.1); Sodium 141 mmol/L (137-145); Total Protein 8.1 g/dL (6.3-8.2)
[2023-02-23] MEDS: ALBUTEROL 2.5 MG/3 ML NEB (ADULT) 20 MG INH (21:35)
[2023-02-23] MEDS: MAGNESIUM SULFATE 2 GM/50 ML PIGGYBACK IV (21:45)
[2023-02-23] MEDS: LORazepam 2 MG/ML INJ 1 MG IV ×2 (21:45→22:10)
[2023-02-23 21:46] LABS: Troponin I < 0.012 ng/mL (0.01-0.034)
[2023-02-23 21:50] LABS: CKMB % Relative Index 0.9 % (1.5-5.0); Creatine Kinase MB 0.93 ng/mL (<2.37); Procalcitonin 0.06 ng/mL (<0.5)
--- NOTE | 2023-02-23 21:55 | PC.NURSE ---
Patient continues to tripod with difficulty breathing. BiPap placed on patient, ativan given and patient beginning to calm down.
[2023-02-23 22:28] LABS: Adenovirus Not Detected (Not Detect); Coronavirus 229E Not Detected (Not Detect); Coronavirus HKU1 Not Detected (Not Detect); Coronavirus NL 63 Not Detected (Not Detect); Coronavirus OC43 Not Detected (Not Detect); Human Metapneumovirus Not Detected (Not Detect); Human Rhinovirus/Enterovirus Detected (Not Detect); Influenza A Not Detected (Not Detect); Influenza B Not Detected (Not Detect); SARS- CoV-2 Not Detected (Not Detecte)
[2023-02-23 22:29] LABS: B. parapertussis Not Detected (Not Detecte); Bordetella pertussis Not Detected (Not Detecte); Chlamydophila pneumoniae Not Detected (Not Detect); Mycoplasma pneumoniae Not Detected (Not Detect); Parainfluenza Virus 1 Not Detected (Not Detect); Parainfluenza Virus 2 Not Detected (Not Detect); Parainfluenza Virus 3 Not Detected (Not Detect); Parainfluenza Virus 4 Not Detected (Not Detect); Respiratory Syncytial Virus Not Detected (Not Detect)
--- NOTE | 2023-02-23 23:30 | DI.CT.S_ITS ---
PROCEDURE: CT ANGIO CHEST PE PROTOCOL INDICATIONS: SOB with hypoxia and recent surgery TECHNIQUE: After the administration of intravenous contrast, 2 mm thick sections acquired from the pulmonary apices to the posterior costophrenic angles. 3-dimensional maximum intensity projection (MIP) coronal and sagittal reformats were then acquired through the thorax. For radiation dose reduction, the following was used: automated exposure control, adjustment of mA and/or kV according to patient size. COMPARISON: None. FINDINGS: Image quality: There is motion artifact limiting evaluation. Pulmonary arteries: Pulmonary arteries are normal in size, and demonstrate no intraluminal filling defects to suggest central pulmonary embolism. Lower Neck: No lymphadenopathy by size criteria. Thyroid: Visualized thyroid demonstrates no discrete nodules. Axillae: No lymphadenopathy by size criteria. Chest Wall: Unremarkable. Bones: Visualized osseous structures demonstrate no suspicious lesions. Lungs and Airways: There are patchy indistinct areas of ground-glass opacity in the lungs bilaterally. The trachea and central airways are patent. Pleura: No pneumothorax or pleural effusions. Heart: Heart size is normal. No pericardial effusion. Thoracic Vessels: The thoracic aorta is normal in size. Mediastinum and [place]: No lymphadenopathy by size criteria. There is residual thymus in the anterior mediastinum. Esophagus: No wall thickening. No hiatal hernia. Abdomen: Visualized upper abdominal solid organs appear normal in the early arterial phase of enhancement. IMPRESSION: 1. No evidence of pulmonary embolism. 2. No acute airspace consolidation. Dictated by: [place] M.D. on 02/24/2023 at 0:27 Approved by: [place] S[place] M.D. on 02/24/2023 at 0:30
[2023-02-24] VITALS (10 sets, daily range): BP systolic 120–150; BP diastolic 84–95; PULSE 90–120; RESP 17–24; TEMP 36.1–37.2; O2SAT 92–96; BMI 23.3
--- NOTE | 2023-02-24 00:54 | PM.HP.1 ---
History of Present Illness History of Present Illness Date Patient Seen: 02/24/23 Time Patient Seen: 00:54 Chief complaint: Difficulty breathing Narrative: Karan Cason is a 32-year-old male with only a childhood asthma known medical history but has not required medications or treatment in decades patient presented to the ED this evening after 3 days of increasing difficulty breathing, wheezing cough mild chest pain without fever. Patient presented to the ED hypertensive without a diagnosis of hypertension BP is 204/98, 149/101, tachycardic HR in the 120's, and tachypneic RR 24-38, in significant respiratory distress, anxious, only one-word verbalization, audible wheezing O2 saturations in the low 80s. he received Solu-Medrol, 2 g Mag, 4 DuoNeb treatments without improvement and escalated to a trial of BiPAP of which he tolerated well, but when the BiPAP had to be held for nebulizer treatment O2 sat dropped to 80-86%. The patient was then placed on heated high-flow 40L satting at 92% after continuous nebulization. Significantly improved at the time of admit exam, patient was calm relaxed still slightly tachycardic blood pressure had decreased significantly still labored breathing using accessory muscles but able to speak in full sentences and communicate easily. Patient is alert orientated and an excellent historian. He notes that he has not experienced an episode like this before and has not required any respiratory meds since childhood. Patient notes that he was a tobacco smoker for approximately 11 years and quit 9 months ago but continues to smoke THC. Patient has no other medical history and takes no medications. Patient also had a traumatic saw injury to the left hand that has required multiple reconstruction and revision surgical procedures the last tendon repair surgery was 01/10/2023. At the time of admit BP 145/95, afebrile, HR 119, R 20, 94% on heated high-flow 40 L. WBC 11.8, mono 1000, Eos 1300, procalcitonin is negative, respiratory panel is positive for entero/rhino virus, COVID negative, chest x-ray is negative possible suggestive findings of COPD, chest CTA to rule out PE is negative for PE and acute airspace. Patient admitted with acute respiratory failure with hypoxia secondary to entero/rhino virus. Patient History Medical History History of tobacco abuse Surgical History History of hand surgery Family & Social History Family History (Updated 02/24/23 @ 01:12 [facility] Mother Diabetes mellitus Grandfather Stroke Heart attack Safety & Behavioral: Feels Safe in Current Yes Environment Been Physically Hurt or No Threatened By a Person Tobacco & Substance use: Smoking Status smoked for 11 years quit May 2022 alcohol intake frequency a few times a week Substance Use Type marijuana regular smoker Meds Home Medications and Allergies Home Medications Medication Instructions Recorded Confirmed Type No Known Home Medications 06/08/18 06/08/18 History Allergies Allergy/AdvReac Type Severity Reaction Status Date / Time No Known Drug Allergies Allergy Verified 06/08/18 14:53 Review of Systems Review of Systems Narrative: All 12 point systems reviewed with the patient and are negative except otherwise documented. Exam Vital Signs (past 8 hours): - 02/23/23 21:09 02/23/23 21:05 02/23/23 21:15 Temperature 98 F Pulse Rate 91 H 91 H Respiratory Rate 24 35 H 34 H Blood Pressure 152/99 H Pulse Oximetry 94 92 92 Oxygen Delivery Method Room Air Room Air Room Air Oxygen Flow Rate 0 Fraction of Inspired Oxygen 21 02/23/23 21:54 02/23/23 21:18 02/23/23 21:30 Temperature Pulse Rate 96 H 96 H Respiratory Rate 30 H 26 H Blood Pressure Pulse Oximetry 96 95 Oxygen Delivery Method BiPAP Oxygen Flow Rate Fraction of Inspired Oxygen 40 02/23/23 21:49 02/23/23 21:49 02/23/23 22:00 Temperature Pulse Rate 113 H 115 H Respiratory Rate 29 H 31 H Blood Pressure 204/98 H Pulse Oximetry 100 95 Oxygen Delivery Method BiPAP Oxygen Flow Rate Fraction of Inspired Oxygen 02/23/23 22:20 02/23/23 22:23 02/23/23 22:23 Temperature Pulse Rate 126 H Respiratory Rate 38 H Blood Pressure 147/96 H Pulse Oximetry 94 Oxygen Delivery Method Oxygen Flow Rate Fraction of Inspired Oxygen 80 02/23/23 22:30 02/23/23 22:30 02/23/23 23:00 Temperature Pulse Rate 124 H Respiratory Rate 33 H Blood Pressure 152/96 H 149/101 H Pulse Oximetry 96 Oxygen Delivery Method Oxygen Flow Rate Fraction of Inspired Oxygen 02/23/23 23:00 Temperature Pulse Rate 123 H Respiratory Rate 30 H Blood Pressure Pulse Oximetry 97 Oxygen Delivery Method BiPAP Oxygen Flow Rate Fraction of Inspired Oxygen Fraction of Inspired Oxygen 80 SaO2/FiO2 Ratio 447 Oxygen Delivery Method BiPAP Oxygen Flow Rate 0 Narrative Exam Narrative: General: Patient is a well-developed, well-nourished in no acute distress at this time. HEENT: Normocephalic, atraumatic, extraocular muscles intact, oral pharynx is clear and mucous membranes are dry. Neck is supple and symmetric, trachea is midline, no adenopathy, no thyroid enlargement, nontender, no masses palpated. Negative for JVD Chest: Patient's breathing is still extremely labored, tachypneic, accessory muscle use, nasal flaring, but is now speaking in full sentences, and in no acute distress. Lungs: Auscultation of all lung mensah decreased coarse poor air exchange, significant rhonchi, wheezing, throughout. Cardio: Tachycardic regular rate and rhythm without murmur, rubs, or gallops, no carotid bruit, no cardiac pulsations present. Abdomen: Soft nontender, negative for organomegaly, or masses. Bowel sounds are present in all 4 quadrants without guarding or rebound, no CVA tenderness. Musculoskeletal: Muscle strength and tone are equal within normal limits, no deformity, crepitus, effusions, cyanosis, clubbing or edema present. Full range of motion intact radial and pedal pulses are normal. Skin: Warm dry and intact without rashes, ulcerations or petechiae. Neuro: Alert and orientated x3, strength is +5/5 in all extremities, sensation to touch intact, no gross deficits noted of cranial nerves. Psych: Patient has a well-kept appearance, appropriate affect, mental status attitude thought context and judgment are appropriate for age. Objective Labs 02/23/23 21:15 02/23/23 21:15 Labs: Laboratory Results - last 24 hr 02/23/23 02/23/23 02/23/23 21:15 21:15 21:15 WBC 11.8 H RBC 5.35 Hgb 16.2 Hct 47.7 MCV 89.2 MCH 30.3 MCHC 33.9 RDW 13.1 Plt Count 334 Neut % (Auto) 56.9 Lymph % (Auto) 22.8 L Ray % (Auto) 8.7 Eos % (Auto) 11.1 H Baso % (Auto) 0.5 Neut # (Auto) 6700 Lymph # (Auto) 2700 Ray # (Auto) 1000 H Eos # (Auto) 1300 H Baso # (Auto) 100 Sodium 141 Potassium 3.5 Chloride 102 Carbon Dioxide 26 BUN 8 L Creatinine 0.95 Estimated GFR > 60 BUN/Creatinine Ratio 8.4 Glucose 100 Calcium 9.2 Total Bilirubin 0.7 AST 24 ALT 23 Alkaline Phosphatase 72 Total Creatine Kinase 106 CK-MB (CK-2) 0.93 CK-MB (CK-2) Rel Index 0.9 L Troponin I < 0.012 Total Protein 8.1 Albumin 4.8 Globulin 3.3 Albumin/Globulin Ratio 1.5 Lipase 61 Procalcitonin 0.06 Chlamy pneumoniae PCR Adenovirus (PCR) B. pertussis DNA (PCR) B.parapertussis DNA PCR Coronavirus OC43 (PCR) Coronavirus HKU1 (PCR) Coronavirus 229E (PCR) SARS-CoV-2 (PCR) Coronavirus NL63 (PCR) Human Metapneumovir PCR Influenza Type A (PCR) Influenza Type B (PCR) M. pneumoniae (PCR) Parainfluenza 1 (PCR) Parainfluenza 2 (PCR) Parainfluenza 3 (PCR) Parainfluenza 4 (PCR) RSV (PCR) Entero/Rhino (PCR) 02/23/23 21:25 WBC RBC Hgb Hct MCV MCH MCHC RDW Plt Count Neut % (Auto) Lymph % (Auto) Ray % (Auto) Eos % (Auto) Baso % (Auto) Neut # (Auto) Lymph # (Auto) Ray # (Auto) Eos # (Auto) Baso # (Auto) Sodium Potassium Chloride Carbon Dioxide BUN Creatinine Estimated GFR BUN/Creatinine Ratio Glucose Calcium Total Bilirubin AST ALT Alkaline Phosphatase Total Creatine Kinase CK-MB (CK-2) CK-MB (CK-2) Rel Index Troponin I Total Protein Albumin Globulin Albumin/Globulin Ratio Lipase Procalcitonin Chlamy pneumoniae PCR Not detected Adenovirus (PCR) Not detected B. pertussis DNA (PCR) Not detected B.parapertussis DNA PCR Not detected Coronavirus OC43 (PCR) Not detected Coronavirus HKU1 (PCR) Not detected Coronavirus 229E (PCR) Not detected SARS-CoV-2 (PCR) Not detected Coronavirus NL63 (PCR) Not detected Human Metapneumovir PCR Not detected Influenza Type A (PCR) Not detected Influenza Type B (PCR) Not detected M. pneumoniae (PCR) Not detected Parainfluenza 1 (PCR) Not detected Parainfluenza 2 (PCR) Not detected Parainfluenza 3 (PCR) Not detected Parainfluenza 4 (PCR) Not detected RSV (PCR) Not detected Entero/Rhino (PCR) Detected H Assessment & Plan Assessment & Plan narrative: 1. Acute respiratory failure with hypoxia, acute, present on admission -with tachycardia, elevated blood pressure without the diagnosis of hypertension, and tachypnea:BP is 204/98, 149/101, tachycardic HR in the 120's, and tachypneic RR 24-38, -secondary to entero/rhino virus, asthma exacerbation -patient to continue on heated high-flow (40 L at 92%)-attempt tapering during the day. -respiratory consult -albuterol nebulizers q.4 hours while awake, incentive spirometry Q 4, sputum culture ordered, prednisone 50 mg q.day x7 days. -Tessalon Perles, guaifenesin with codeine, Tamiflu -discharge goal: ambulation trial with O2 saturations greater than 94% on room air -blood cultures ordered: WBC 11.8, mono 1000, Eos 1300-procalcitonin negative, ordered lactate, CRP -Ativan for agitation and anxiety related to steroid use, melatonin for sleep -Voltaren gel for costochondritis -CTA negative for PE or acute airspace -recommend COVID vaccination & boosters 2. Asthma, acute exacerbation, present on admission -patient advised to establish with PCP for evaluation develop prevention plan, medication management and be referred to pulmonology for evaluation. 3. Tobacco use, in remission, present on admission -advised tobacco and THC cessation Code status: Full Surrogate decision maker: Mother Maritza NOVAID PCR: Negative DVT/VTE prophylaxis: Lovenox and SCDs Disposition: Patient admitted to acute care expected length of stay greater than 2 midnights. I have utilized all available immediate resources to obtain, update, or review the patient's current medications. I confirmed that the patient's advanced care plan is present, Code status is documented and/or surrogate decision maker is listed in the patient's medical record. I have personally reviewed patient's chart notes from PCP, specialists, diagnostic imaging, and laboratory results.
[2023-02-24 01:08] LABS: Lactate (Lactic Acid) 2.3 mmol/L (0.7-2.1); Magnesium 2.6 mg/dL (1.6-2.3)
[2023-02-24] MEDS: OSELTAMIVIR 75 MG CAPSULE PO (01:36)
[2023-02-24 02:56] LABS: Reflexed Lactate in 2 Hours Y
[2023-02-24 03:08] LABS: Add Manual Diff / Slide Review NO; Basophils Absolute Auto 0 /uL (0-100); Basophils Percent Auto 0.2 % (0-2); Eosinophils Absolute Auto 100 /uL (0-450); Eosinophils Percent Auto 0.4 % (2-4); Hematocrit 45.7 % (41-53); Hemoglobin 15.9 g/dL (13.5-17.5); Lymphocytes Absolute Auto 500 /uL (1100-4500); Lymphocytes Percent Auto 3.8 % (25-40); Mean Corpuscular HGB Conc 34.8 % (30-36); Mean Corpuscular Hemoglobin 30.5 PG (26-34); Mean Corpuscular Volume 87.4 fL (80-100); Monocytes Absolute Auto 100 /uL (0-900); Monocytes Percent Auto 0.9 % (3-14); Neutrophils Absolute Auto 12500 /uL (1500-7000); Neutrophils Percent Auto 94.7 % (50-75); Platelet Count 296 X10^3/uL (150-400); Red Blood Cell Count 5.22 X10^6/uL (4.5-5.9); White Blood Cell Count 13.2 X10^3/uL (4.5-11.0)
[2023-02-24 03:15] LABS: Lactate 2HR (Lactic Acid Rflx) 2.7 mmol/L (0.7-2.1)
[2023-02-24 03:16] LABS: Blood Urea Nitrogen 9 mg/dL (9-20); Calcium 9.1 mg/dL (8.4-10.2); Carbon Dioxide 23 mmol/L (22-32); Chloride 102 mmol/L (98-107); Estimated Glomerular Filt Rate > 60 mL/min (>60); Glucose 187 mg/dL (70-100); HEMOLYSIS 15 (0-50); Potassium 3.9 mmol/L (3.4-5.1); Sodium 137 mmol/L (137-145)
--- NOTE | 2023-02-24 03:54 | PC.NURSE ---
Pt admitted from ER via stretcher and on a 85% HFNC. Lungs are tight and wheezing throughout. Pt unable to lay down flat but able to speak in full sentences. Pt sating in the low 90's. According to patient's mom pt is still vaping at home and pt's girlfriend who leaves with him also smokes.
[2023-02-24] MEDS: PANTOPRAZOLE DR 20 MG TABLET PO (06:11)
[2023-02-24] MEDS: ALBUTEROL 2.5 MG/3 ML NEB (ADULT) INH ×4 (08:38→18:58)
[2023-02-24] MEDS: ENOXAPARIN 40 MG/0.4 ML SYRINGE SUBCUT (09:05)
[2023-02-24] MEDS: ACETAMINOPHEN 325 MG TABLET 650 MG PO ×2 (09:05→17:58)
[2023-02-24] MEDS: SODIUM CHLORIDE 0.9% FLUSH 10 ML IV ×2 (09:06→22:02)
[2023-02-24] MEDS: predniSONE 20 MG TABLET 50 MG PO (09:06)
--- NOTE | 2023-02-24 11:22 | CM.DANOTE ---
DCP: Case received, EMR reviewed and met with patient. Mother, Maritza, in the room, and sister. Spoke from patient's doorway due to virus. Introduced self and role. Was able to complete DCP assessment based upon information currently available. Patient is a 32 year old male who admitted early this morning to the care of the hospitalist team. PCP: None. Payer: [employer] currently inactive, none, counselors working on getting patient reestablished. Patient came to the hospital secondary to having increased shortness of breath with chest discomfort. Patient also noted to have some coughing. Patient had noted increased difficulty speaking due to shortness of breath. He was given nebulizer treatments. Patient was then placed on BIPAP. Patient diagnosed with rhino virus, acute respiratory failure. Patient is now currently on high flow oxygen. Met with patient in his doorway, mother, Maritza, and sister at bedside. Patient is on oxygen, alert and oriented, pleasant. Confirmed that he resides in [place], is independent. Confirmed that he does not have a primary care provider, has been healthy. Let him know that resources can be offered. After leaving the room, noticed by notes from admission counselors, that his [employer] is currently inactive, is getting some income from [employer], which does not qualify for added income, and should qualify for [employer]. P: DCP to continue to follow, and can follow up regarding resources and insurance upon discharge, since the plan will be home when deemed medically stable. Gabriella Cline RN/Tip Printer Discharge Planning/Care Management CM Discharge Assessment Start: 02/24/23 11:20 Freq: Status: Active Protocol: Document 02/24/23 11:20 (Rec: 02/24/23 11:22 [email or web address]) Discharge Planning Assessment Assigned Manager Speech Gabriella Cline RN/Tip Printer Advance Directives? No History Provided By Patient,Parents,Medical Record Prior Living Arrangements House Household Members significant other Type of transporation used prior to Drives own vehicle admit Independent with ADL's Yes Is patient alert and oriented? Yes Caregiver for Another No Barriers to Discharge Yes Comment No insurance, his [employer] is inactive, admission counselors working on getting patient established with [employer]. Discharge Plan Home Transportation Arrangement Family Referrals Initiated None needed Whiteboard Updated in Patient Room with No name and ext. # of Manager Speech Comment Patient is in isolation due to virus. Review Status In Process Next Review Type Continued Stay Review
[2023-02-24] MEDS: CODEINE/GUAIFENESIN LIQUID 5ML UDC 5 ML PO (18:26)
--- NOTE | 2023-02-24 19:52 | PM.PN.1 ---
Subjective Subjective Interval history: Karan Cason is a 32-year-old male with only a childhood asthma known medical history but has not required medications or treatment in decades patient presented to the ED this evening after 3 days of increasing difficulty breathing, wheezing cough mild chest pain without fever.? Patient presented to the ED hypertensive without a diagnosis of hypertension BP is 204/98, 149/101, tachycardic HR in the 120's, and tachypneic RR 24-38, in significant respiratory distress, anxious, only one-word verbalization, audible wheezing O2 saturations in the low 80s.? Patient feels very tight still to breathe. But is feeling somewhat better today. Exam Vital Signs (past 8 hours): - 02/24/23 14:04 02/24/23 14:04 02/24/23 15:00 Temperature 97.9 F Pulse Rate 111 H 111 H 90 Respiratory Rate 22 22 18 Blood Pressure 140/84 Pulse Oximetry 92 92 92 Oxygen Delivery Method Heated High Flow Oxygen Flow Rate 50 Fraction of Inspired Oxygen 50 02/24/23 18:58 Temperature Pulse Rate Respiratory Rate Blood Pressure Pulse Oximetry Oxygen Delivery Method Nasal Cannula High Flow Nasal Cannula Oxygen Flow Rate 50 Fraction of Inspired Oxygen 50 Fraction of Inspired Oxygen 50 SaO2/FiO2 Ratio 184 Oxygen Delivery Method Nasal Cannula,High Flow Nasal Cannula Oxygen Flow Rate 50 Narrative Exam Narrative: General:? Patient is a well-developed, well-nourished in no acute distress at this time. HEENT:? Normocephalic, atraumatic, extraocular muscles intact, oral pharynx is clear and mucous membranes are dry.? Neck is supple and symmetric, trachea is midline, no adenopathy, no thyroid enlargement, nontender, no masses palpated.? Negative for JVD Lungs:? Auscultation of all lung mensah decreased coarse poor air exchange. Air exchange throughout the lung mensah with general tightness throughout the chest. Cardio:? Tachycardic regular rate and rhythm without murmur, rubs, or gallops, no carotid bruit, no cardiac pulsations present. Abdomen:? Soft nontender, negative for organomegaly, or masses.? Bowel sounds are present in all 4 quadrants without guarding or rebound, no CVA tenderness. Musculoskeletal:? Muscle strength and tone are equal within normal limits, no deformity, crepitus, effusions, cyanosis, clubbing or edema present.? Full range of motion intact radial and pedal pulses are normal. Skin:? Warm dry and intact without rashes, ulcerations or petechiae.? Neuro:? Alert and orientated x3, strength is +5/5 in all extremities, sensation to touch intact, no gross deficits noted of cranial nerves. Psych:? Patient has a well-kept appearance, appropriate affect, mental status attitude thought context and judgment are appropriate for age. Objective Labs 02/24/23 02:58 02/24/23 02:58 Labs: Laboratory Results - last 24 hr 02/23/23 02/23/23 02/23/23 21:15 21:15 21:15 WBC 11.8 H RBC 5.35 Hgb 16.2 Hct 47.7 MCV 89.2 MCH 30.3 MCHC 33.9 RDW 13.1 Plt Count 334 Neut % (Auto) 56.9 Lymph % (Auto) 22.8 L [place] % (Auto) 8.7 Eos % (Auto) 11.1 H Baso % (Auto) 0.5 Neut # (Auto) 6700 Lymph # (Auto) 2700 [place] # (Auto) 1000 H Eos # (Auto) 1300 H Baso # (Auto) 100 Sodium 141 Potassium 3.5 Chloride 102 Carbon Dioxide 26 BUN 8 L Creatinine 0.95 Estimated GFR > 60 BUN/Creatinine Ratio 8.4 Glucose 100 Lactate Calcium 9.2 Magnesium Total Bilirubin 0.7 AST 24 ALT 23 Alkaline Phosphatase 72 Total Creatine Kinase 106 CK-MB (CK-2) 0.93 CK-MB (CK-2) Rel Index 0.9 L Troponin I < 0.012 Total Protein 8.1 Albumin 4.8 Globulin 3.3 Albumin/Globulin Ratio 1.5 Lipase 61 Procalcitonin 0.06 Chlamy pneumoniae PCR Adenovirus (PCR) B. pertussis DNA (PCR) B.parapertussis DNA PCR Coronavirus OC43 (PCR) Coronavirus HKU1 (PCR) Coronavirus 229E (PCR) SARS-CoV-2 (PCR) Coronavirus NL63 (PCR) Human Metapneumovir PCR Influenza Type A (PCR) Influenza Type B (PCR) M. pneumoniae (PCR) Parainfluenza 1 (PCR) Parainfluenza 2 (PCR) Parainfluenza 3 (PCR) Parainfluenza 4 (PCR) RSV (PCR) Entero/Rhino (PCR) 02/23/23 02/24/23 02/24/23 21:25 00:33 00:33 WBC RBC Hgb Hct MCV MCH MCHC RDW Plt Count Neut % (Auto) Lymph % (Auto) [place] % (Auto) Eos % (Auto) Baso % (Auto) Neut # (Auto) Lymph # (Auto) [place] # (Auto) Eos # (Auto) Baso # (Auto) Sodium Potassium Chloride Carbon Dioxide BUN Creatinine Estimated GFR BUN/Creatinine Ratio Glucose Lactate 2.3 H Calcium Magnesium 2.6 H Total Bilirubin AST ALT Alkaline Phosphatase Total Creatine Kinase CK-MB (CK-2) CK-MB (CK-2) Rel Index Troponin I Total Protein Albumin Globulin Albumin/Globulin Ratio Lipase Procalcitonin Chlamy pneumoniae PCR Not detected Adenovirus (PCR) Not detected B. pertussis DNA (PCR) Not detected B.parapertussis DNA PCR Not detected Coronavirus OC43 (PCR) Not detected Coronavirus HKU1 (PCR) Not detected Coronavirus 229E (PCR) Not detected SARS-CoV-2 (PCR) Not detected Coronavirus NL63 (PCR) Not detected Human Metapneumovir PCR Not detected Influenza Type A (PCR) Not detected Influenza Type B (PCR) Not detected M. pneumoniae (PCR) Not detected Parainfluenza 1 (PCR) Not detected Parainfluenza 2 (PCR) Not detected Parainfluenza 3 (PCR) Not detected Parainfluenza 4 (PCR) Not detected RSV (PCR) Not detected Entero/Rhino (PCR) Detected H 02/24/23 02/24/23 02/24/23 02:58 02:58 02:58 WBC 13.2 H RBC 5.22 Hgb 15.9 Hct 45.7 MCV 87.4 MCH 30.5 MCHC 34.8 RDW 13.0 Plt Count 296 Neut % (Auto) 94.7 H D Lymph % (Auto) 3.8 L [place] % (Auto) 0.9 L Eos % (Auto) 0.4 L Baso % (Auto) 0.2 Neut # (Auto) 02768 H Lymph # (Auto) 500 L [place] # (Auto) 100 Eos # (Auto) 100 Baso # (Auto) 0 Sodium 137 Potassium 3.9 Chloride 102 Carbon Dioxide 23 BUN 9 Creatinine 0.90 Estimated GFR > 60 BUN/Creatinine Ratio 10.0 Glucose 187 H Lactate 2.7 H Calcium 9.1 Magnesium Total Bilirubin AST ALT Alkaline Phosphatase Total Creatine Kinase CK-MB (CK-2) CK-MB (CK-2) Rel Index Troponin I Total Protein Albumin Globulin Albumin/Globulin Ratio Lipase Procalcitonin Chlamy pneumoniae PCR Adenovirus (PCR) B. pertussis DNA (PCR) B.parapertussis DNA PCR Coronavirus OC43 (PCR) Coronavirus HKU1 (PCR) Coronavirus 229E (PCR) SARS-CoV-2 (PCR) Coronavirus NL63 (PCR) Human Metapneumovir PCR Influenza Type A (PCR) Influenza Type B (PCR) M. pneumoniae (PCR) Parainfluenza 1 (PCR) Parainfluenza 2 (PCR) Parainfluenza 3 (PCR) Parainfluenza 4 (PCR) RSV (PCR) Entero/Rhino (PCR) COUNT INCLUDES THE [facility] Medical History History of tobacco abuse Surgical History History of hand surgery Family History Mother Diabetes mellitus Grandfather Stroke Heart attack Social History household members: significant other Smoking Status: Current every day smoker Assessment & Plan Assessment & Plan narrative: 1. Acute respiratory failure with hypoxia, acute, present on admission -with tachycardia, elevated blood pressure without the diagnosis of hypertension, and tachypnea:BP is 204/98, 149/101, tachycardic HR in the 120's, and tachypneic RR 24-38. Now blood pressure and pulse has decreased but still slightly high -secondary to entero/rhino virus, asthma exacerbation -patient to continue on heated high-flow (50 L at 92%)-attempt tapering during the day. -respiratory consult -ongoing -albuterol nebulizers q.4 hours while awake, incentive spirometry Q 4, sputum culture ordered, prednisone 50 mg q.day x7 days. We will supplement tonight with Solu-Medrol IV and again in the morning. (50 mg of prednisone is approximately equal to 40 mg of Solu-Medrol) -Tessalon Perles guaifenesin with codeine, Tamiflu -discharge goal: ambulation trial with O2 saturations greater than 94% on room air -blood cultures ordered -all cultures negative thus far.:? WBC 11.8, mono 1000, Eos 1300-procalcitonin negative, ordered lactate, CRP. White blood count slightly elevated to 13.2 today however this likely is a corticosteroid effect. -Ativan for agitation and anxiety related to steroid use, melatonin for sleep -Voltaren gel for costochondritis -CTA negative for PE or acute airspace -recommend COVID vaccination & boosters 2. Asthma, acute exacerbation, present on admission in a patient who has a smoking history/vaping history/ marijuana smoking history -patient advised to establish with PCP for evaluation develop prevention plan, medication management and be referred to pulmonology for evaluation. 3. Tobacco use, in remission, present on admission -advised tobacco and THC cessation Follow clinically and labs. Code status:? Full Surrogate decision maker:? Mother Maritza LONGORIA PCR:? Negative DVT/VTE prophylaxis:? Lovenox and SCDs Quality VTE Deep Vein Thrombosis/Pulmonary Embolism Present on Admission: No
[2023-02-24] MEDS: methylPREDNISolone 125 MG/2 ML VIAL IV (21:56)
[2023-02-25] VITALS (10 sets, daily range): BP systolic 115–136; BP diastolic 65–92; PULSE 71–120; RESP 16–24; TEMP 36.1–36.9; O2SAT 91–97
[2023-02-25 02:05] LABS: C-Reactive Protein Quant 1.6 mg/dL (<1.0)
[2023-02-25 05:43] LABS: Add Manual Diff / Slide Review NO; Basophils Absolute Auto 0 /uL (0-100); Basophils Percent Auto 0.3 % (0-2); Eosinophils Absolute Auto 0 /uL (0-450); Hematocrit 47.3 % (41-53); Hemoglobin 16.2 g/dL (13.5-17.5); Lymphocytes Absolute Auto 900 /uL (1100-4500); Lymphocytes Percent Auto 6.6 % (25-40); Mean Corpuscular HGB Conc 34.3 % (30-36); Mean Corpuscular Hemoglobin 30.4 PG (26-34); Mean Corpuscular Volume 88.8 fL (80-100); Monocytes Absolute Auto 300 /uL (0-900); Monocytes Percent Auto 2.4 % (3-14); Neutrophils Absolute Auto 12500 /uL (1500-7000); Neutrophils Percent Auto 90.7 % (50-75); Platelet Count 318 X10^3/uL (150-400); Red Blood Cell Count 5.33 X10^6/uL (4.5-5.9); Red Cell Distribution Width 13.4 % (11.6-14.8); White Blood Cell Count 13.8 X10^3/uL (4.5-11.0)
[2023-02-25] MEDS: ALBUTEROL 2.5 MG/3 ML NEB (ADULT) INH ×5 (05:51→19:57)
[2023-02-25 05:52] LABS: BUN Creatinine Ratio 15.7 (6-22); Blood Urea Nitrogen 14 mg/dL (9-20); Calcium 9.5 mg/dL (8.4-10.2); Carbon Dioxide 24 mmol/L (22-32); Chloride 102 mmol/L (98-107); Estimated Glomerular Filt Rate > 60 mL/min (>60); Glucose 141 mg/dL (70-100); HEMOLYSIS < 15 (0-50); Sodium 137 mmol/L (137-145)
[2023-02-25] MEDS: PANTOPRAZOLE DR 20 MG TABLET PO (06:10)
[2023-02-25] MEDS: CODEINE/GUAIFENESIN LIQUID 5ML UDC 5 ML PO (06:24)
[2023-02-25] MEDS: ENOXAPARIN 40 MG/0.4 ML SYRINGE SUBCUT (08:40)
[2023-02-25] MEDS: methylPREDNISolone 125 MG/2 ML VIAL IV (08:40)
[2023-02-25] MEDS: BENZONATATE 100 MG CAPSULE PO ×2 (08:41→20:42)
[2023-02-25] MEDS: predniSONE 20 MG TABLET 50 MG PO (08:41)
[2023-02-25] MEDS: SODIUM CHLORIDE 0.9% FLUSH 10 ML IV ×2 (08:42→20:43)
--- NOTE | 2023-02-25 08:49 | PM.PN.1 ---
Subjective Subjective Interval history: Added budesonide nebs today. Able to wean off HFNC to 4L NC. Patient feels alot better and less tight. Exam Vital Signs (past 8 hours): - 02/25/23 04:15 02/25/23 08:39 02/25/23 08:42 Temperature 97.6 F Pulse Rate 71 115 H Respiratory Rate 18 20 Blood Pressure 132/84 Pulse Oximetry 91 95 Oxygen Delivery Method Non -Rebreather Heated High Flow Oxygen Flow Rate 35 15 Fraction of Inspired Oxygen 38 100 Fraction of Inspired Oxygen 100 SaO2/FiO2 Ratio 95 Oxygen Delivery Method Heated High Flow Oxygen Flow Rate 15 Narrative Exam Narrative: General:? Patient is a well-developed, well-nourished in no acute distress at this time. HEENT:? Normocephalic, atraumatic, extraocular muscles intact, oral pharynx is clear and mucous membranes are dry.? Neck is supple and symmetric, trachea is midline, no adenopathy, no thyroid enlargement, nontender, no masses palpated.? Negative for JVD Lungs:? Faint expiratory wheezes Cardio:? Tachycardic regular rate and rhythm without murmur, rubs, or gallops, no carotid bruit, no cardiac pulsations present. Abdomen:? Soft nontender, negative for organomegaly, or masses.? Bowel sounds are present in all 4 quadrants without guarding or rebound, no CVA tenderness. Musculoskeletal:? Muscle strength and tone are equal within normal limits, no deformity, crepitus, effusions, cyanosis, clubbing or edema present.? Full range of motion intact radial and pedal pulses are normal. Skin:? Warm dry and intact without rashes, ulcerations or petechiae.? Neuro:? Alert and orientated x3, strength is +5/5 in all extremities, sensation to touch intact, no gross deficits noted of cranial nerves. Psych:? Patient has a well-kept appearance, appropriate affect, mental status attitude thought context and judgment are appropriate for age. Objective Labs 02/25/23 05:33 02/25/23 05:33 Labs: Laboratory Results - last 24 hr 02/24/23 02/25/23 02/25/23 00:33 05:33 05:33 WBC 13.8 H RBC 5.33 Hgb 16.2 Hct 47.3 MCV 88.8 MCH 30.4 MCHC 34.3 RDW 13.4 Plt Count 318 Neut % (Auto) 90.7 H Lymph % (Auto) 6.6 L [place] % (Auto) 2.4 L Eos % (Auto) 0.0 L Baso % (Auto) 0.3 Neut # (Auto) 09521 H Lymph # (Auto) 900 L [place] # (Auto) 300 Eos # (Auto) 0 Baso # (Auto) 0 Sodium 137 Potassium 5.0 Chloride 102 Carbon Dioxide 24 BUN 14 Creatinine 0.89 Estimated GFR > 60 BUN/Creatinine Ratio 15.7 Glucose 141 H Calcium 9.5 C-Reactive Protein 1.6 H [facility] Medical History History of tobacco abuse Surgical History History of hand surgery Family History Mother Diabetes mellitus Grandfather Stroke Heart attack Social History household members: significant other Smoking Status: Current every day smoker Assessment & Plan Assessment & Plan narrative: 1. Acute respiratory failure with hypoxia, acute, present on admission, improving -secondary to entero/rhino virus, asthma exacerbation -albuterol nebulizers q.4 hours while awake, incentive spirometry Q 4, sputum culture ordered, prednisone 50 mg q.day x7 days. We will supplement tonight with Solu-Medrol IV and again in the morning. (50 mg of prednisone is approximately equal to 40 mg of Solu-Medrol) -Tessalon Perles, guaifenesin with codeine -blood cultures ordered -all cultures negative thus far -Ativan for agitation and anxiety related to steroid use, melatonin for sleep -Voltaren gel for costochondritis -CTA negative for PE or acute airspace -recommend COVID vaccination & boosters 2. Asthma, acute exacerbation, present on admission in a patient who has a smoking history/vaping history/marijuana smoking history -notes being diagnosed with asthma as a child, hasn't had f/u with pulm in several years and only occasionally uses inhalers -patient advised to establish with PCP for evaluation develop prevention plan, medication management and be referred to pulmonology for evaluation. -start singulair nightly 3. Tobacco use, in remission, present on admission -advised tobacco and THC cessation Follow clinically and labs. Code status:? Full Surrogate decision maker:? Mother Maritza COVID PCR:? Negative DVT/VTE prophylaxis:? Lovenox and SCDs Dispo: Home in 1-2 days pending weaning of O2. Quality VTE Deep Vein Thrombosis/Pulmonary Embolism Present on Admission: No
[2023-02-25] MEDS: hydrOXYzine pamoate 25 MG CAPSULE PO (10:03)
[2023-02-25] MEDS: BUDESONIDE 0.5 MG/2 ML NEB INH ×2 (11:43→19:57)
[2023-02-25] MEDS: ACETAMINOPHEN 325 MG TABLET 650 MG PO (17:59)
[2023-02-25] MEDS: MONTELUKAST 10 MG TABLET PO (20:42)
[2023-02-26] VITALS: BP 122/77; PULSE 85; RESP 14; TEMP 36.4; O2SAT 95
[2023-02-26 04:00] VITALS: BP 137/61; PULSE 95; RESP 17; TEMP 37; O2SAT 93
[2023-02-26 05:48] LABS: Add Manual Diff / Slide Review NO; Basophils Absolute Auto 0 /uL (0-100); Basophils Percent Auto 0.1 % (0-2); Eosinophils Absolute Auto 0 /uL (0-450); Eosinophils Percent Auto 0.2 % (2-4); Hematocrit 46.4 % (41-53); Hemoglobin 15.7 g/dL (13.5-17.5); Lymphocytes Absolute Auto 2900 /uL (1100-4500); Lymphocytes Percent Auto 22.7 % (25-40); Mean Corpuscular HGB Conc 33.9 % (30-36); Mean Corpuscular Hemoglobin 30.3 PG (26-34); Mean Corpuscular Volume 89.3 fL (80-100); Monocytes Absolute Auto 1000 /uL (0-900); Monocytes Percent Auto 7.6 % (3-14); Neutrophils Absolute Auto 9000 /uL (1500-7000); Neutrophils Percent Auto 69.4 % (50-75); Platelet Count 302 X10^3/uL (150-400); Red Blood Cell Count 5.19 X10^6/uL (4.5-5.9); Red Cell Distribution Width 13.5 % (11.6-14.8); White Blood Cell Count 12.9 X10^3/uL (4.5-11.0)
[2023-02-26 05:57] LABS: Blood Urea Nitrogen 24 mg/dL (9-20); Calcium 9.3 mg/dL (8.4-10.2); Carbon Dioxide 25 mmol/L (22-32); Chloride 101 mmol/L (98-107); Estimated Glomerular Filt Rate > 60 mL/min (>60); Glucose 104 mg/dL (70-100); HEMOLYSIS < 15 (0-50); Sodium 138 mmol/L (137-145)
[2023-02-26] MEDS: PANTOPRAZOLE DR 20 MG TABLET PO (06:16)
[2023-02-26 08:00] VITALS: BP 123/78; PULSE 97; RESP 20; TEMP 36.6; O2SAT 94
[2023-02-26] MEDS: SODIUM CHLORIDE 0.9% FLUSH 10 ML IV (08:29)
[2023-02-26] MEDS: BUDESONIDE 0.5 MG/2 ML NEB INH (08:40)
[2023-02-26] MEDS: ALBUTEROL 2.5 MG/3 ML NEB (ADULT) INH (08:40)
[2023-02-26 08:41] VITALS: PULSE 85; RESP 20; O2SAT 91
[2023-02-26] MEDS: predniSONE 20 MG TABLET 50 MG PO (09:04)
--- NOTE | 2023-02-26 09:13 | PM.DS.1 ---
History of Present Illness History of Present Illness Date Patient Seen: 02/26/23 Time Patient Seen: 10:00 Chief complaint: Difficulty breathing Narrative: Karan Cason is a 32-year-old male with only a childhood asthma known medical history but has not required medications or treatment in decades patient presented to the ED this evening after 3 days of increasing difficulty breathing, wheezing cough mild chest pain without fever. Patient presented to the ED hypertensive without a diagnosis of hypertension BP is 204/98, 149/101, tachycardic HR in the 120's, and tachypneic RR 24-38, in significant respiratory distress, anxious, only one-word verbalization, audible wheezing O2 saturations in the low 80s. he received Solu-Medrol, 2 g Mag, 4 DuoNeb treatments without improvement and escalated to a trial of BiPAP of which he tolerated well, but when the BiPAP had to be held for nebulizer treatment O2 sat dropped to 80-86%. The patient was then placed on heated high-flow 40L satting at 92% after continuous nebulization. Significantly improved at the time of admit exam, patient was calm relaxed still slightly tachycardic blood pressure had decreased significantly still labored breathing using accessory muscles but able to speak in full sentences and communicate easily. Patient is alert orientated and an excellent historian. He notes that he has not experienced an episode like this before and has not required any respiratory meds since childhood. Patient notes that he was a tobacco smoker for approximately 11 years and quit 9 months ago but continues to smoke THC. Patient has no other medical history and takes no medications. Patient also had a traumatic saw injury to the left hand that has required multiple reconstruction and revision surgical procedures the last tendon repair surgery was 01/10/2023. At the time of admit BP 145/95, afebrile, HR 119, R 20, 94% on heated high-flow 40 L. WBC 11.8, mono 1000, Eos 1300, procalcitonin is negative, respiratory panel is positive for entero/rhino virus, COVID negative, chest x-ray is negative possible suggestive findings of COPD, chest CTA to rule out PE is negative for PE and acute airspace. Patient admitted with acute respiratory failure with hypoxia secondary to entero/rhino virus. Discharge Providers Provider Date of admission: 02/24/23 00:31 Discharge Date: 02/26/23 Primary care physician: *ED Temp* Discharge provider: Jacobo Fairchild DO Summary Hospital Course Discharge Diagnosis: 1. Acute respiratory failure with hypoxia, acute, present on admission, improving -requried HFNC -secondary to entero/rhino virus, asthma exacerbation -albuterol nebulizers q.4 hours while awake, incentive spirometry Q 4, sputum culture ordered, prednisone 50 mg q.day x7 days.? Initially received Solu-Medrol IV. -Tessalon Perles, guaifenesin with codeine -blood cultures ordered -all cultures negative thus far -Ativan for anxiety related to steroid use, melatonin for sleep -Voltaren gel for costochondritis -CTA negative for PE or acute airspace -recommend COVID vaccination & boosters -add budesonide nebs -discharged on po prednisone, budesonide inhaler, albuterol inhaler and singulair 2. Asthma, acute exacerbation, present on admission in a patient who has a smoking history/vaping history/marijuana smoking history -notes being diagnosed with asthma as a child, hasn't had f/u with pulm in several years and only occasionally uses inhalers -patient advised to establish with PCP for evaluation develop prevention plan, medication management and be referred to pulmonology for evaluation. -started singulair nightly 3. Tobacco use, in remission, present on admission -advised tobacco and THC cessation -patient said he will stop smoking and vaping Hospital Course: Admitted for acute asthma exacerbation in setting of positive rhinovirus. Patient required high-flow nasal cannula and was given high-dose steroids and nebulizer treatments. Able to wean to room air after a couple days and was discharged to finish 7 day course of p.o. prednisone 50 mg, and given budesonide and albuterol inhaler prescriptions. Also prescribe Singulair nightly. Obtained a new PCP for him at [facility] for referral to pulmonology. Time Spent with Patient Time spent: Greater than 30 minutes Exam Vital Signs (past 8 hours): - 02/26/23 04:00 02/26/23 06:16 02/26/23 08:00 Temperature 98.6 F 97.9 F Pulse Rate 95 H 97 H Respiratory Rate 17 20 Blood Pressure 137/61 123/78 Pulse Oximetry 93 94 Oxygen Delivery Method Oxygen Flow Rate 2 2 0 02/26/23 08:41 Temperature Pulse Rate 85 Respiratory Rate 20 Blood Pressure Pulse Oximetry 91 Oxygen Delivery Method Room Air Oxygen Flow Rate Fraction of Inspired Oxygen 36 SaO2/FiO2 Ratio 269 Oxygen Delivery Method Room Air Oxygen Flow Rate 0 Narrative Exam Narrative: General:? Patient is a well-developed, well-nourished in no acute distress at this time. HEENT:? Normocephalic, atraumatic, extraocular muscles intact, oral pharynx is clear and mucous membranes are dry.? Neck is supple and symmetric, trachea is midline, no adenopathy, no thyroid enlargement, nontender, no masses palpated.? Negative for JVD Lungs:? Faint expiratory wheezes Cardio:? Tachycardic regular rate and rhythm without murmur, rubs, or gallops, no carotid bruit, no cardiac pulsations present. Abdomen:? Soft nontender, negative for organomegaly, or masses.? Bowel sounds are present in all 4 quadrants without guarding or rebound, no CVA tenderness. Musculoskeletal:? Muscle strength and tone are equal within normal limits, no deformity, crepitus, effusions, cyanosis, clubbing or edema present.? Full range of motion intact radial and pedal pulses are normal. Skin:? Warm dry and intact without rashes, ulcerations or petechiae.? Neuro:? Alert and orientated x3, strength is +5/5 in all extremities, sensation to touch intact, no gross deficits noted of cranial nerves. Psych:? Patient has a well-kept appearance, appropriate affect, mental status attitude thought context and judgment are appropriate for age. Objective Labs 02/26/23 05:01 02/26/23 05:01 Labs: Laboratory Results - last 24 hr 02/26/23 02/26/23 05:01 05:01 WBC 12.9 H RBC 5.19 Hgb 15.7 Hct 46.4 MCV 89.3 MCH 30.3 MCHC 33.9 RDW 13.5 Plt Count 302 Neut % (Auto) 69.4 D Lymph % (Auto) 22.7 L [place] % (Auto) 7.6 Eos % (Auto) 0.2 L Baso % (Auto) 0.1 Neut # (Auto) 9000 H Lymph # (Auto) 2900 [place] # (Auto) 1000 H Eos # (Auto) 0 Baso # (Auto) 0 Sodium 138 Potassium 4.0 Chloride 101 Carbon Dioxide 25 BUN 24 H Creatinine 1.00 Estimated GFR > 60 BUN/Creatinine Ratio 24.0 H Glucose 104 H Calcium 9.3 PFSH Medical History History of tobacco abuse Surgical History History of hand surgery Family History Mother Diabetes mellitus Grandfather Stroke Heart attack Social History household members: significant other Smoking Status: Current every day smoker Discharge Plan Discharge Plan Patient Disposition: Home Provider Discharge Comment: You were admitted for an asthma exacerbation due to rhinovirus (aka the common cold). You required lots of oxygen telling me your underlying asthma is not currently well-controlled. You improved on prednisone and will need to take 5 more days at home. I've also sent 2 inhalers for you to use at home. If the Pulmicort is too expensive then you can probably just get away with the albuterol inhaler, but both would be ideal. The pulmicort is one you use twice daily everyday and the albuterol is as needed. I've also sent a nightly pill to take called Singulair which for asthma patients helps prevent future exacerbations. We are setting you up with a new PCP at [facility] in [facility] so you can get a referral to pulmonology. Discharge orders & Medications Prescriptions: New prednisone 50 mg tablet 50 mg PO DAILY 5 Days Qty: 5 0RF budesonide 90 mcg/actuation aerosol powdr breath activated 1 inh inhalation BID Qty: 1 0RF albuterol sulfate 90 mcg/actuation HFA aerosol inhaler 2 inh inhalation Q4-6H PRN (Reason: shortness of breath or wheezing) Qty: 8.5 0RF montelukast 10 mg Tablet 10 mg PO BEDTIME 30 Days Qty: 30 0RF Continued gabapentin 300 mg Capsule 300 mg PO TID Follow up/Referrals: *Temp,ED* [Primary Care Provider] - Visit Report/Discharge Packet Instructions: DI for Asthma -- Adult, Montelukast, Prednisone, DI for Hypoxia Stand Alone Forms: Patient Portal/API, Stroke Signs & Symptoms Discharge Data Primary Care Provider: *Temp,ED* Discharges patient from system. Discharge Date/Time: 02/26/23 10:00 Quality VTE Deep Vein Thrombosis/Pulmonary Embolism Present on Admission: No
--- NOTE | 2023-02-26 10:25 | PC.NURSE ---
Pt dressed independently, IV d/c'd. Reviewed paperwork and patient education about new meds to p/u at [facility] in [place] and managing asthma, as well as s/s of hypoxia. Pt had no futher questions/concerns. Pt's sister came to p/u pt and was escorted to POV via wheelchair by RN @ 1000.
--- NOTE | 2023-02-26 10:45 | CM.DPNOTE ---
DC Note Discharge home today as planned; No CM needs identified. Close outpatient follow up recommended JW
== END 2023-02-26 10:00 | disposition home or self-care (01) | DRG 141 ==
LOC: ED 23:45 → AC 02-24 00:32
PROVIDERS: Admitting Provider Nurse Practitioner Family; Emergency Provider Emergency Medicine; Referring Provider Emergency Medicine; Visit Provider Nurse Practitioner Family
DX: J45.901 Unspecified asthma with (acute) exacerbation (principal); J96.01 Acute respiratory failure with hypoxia; B34.1 Enterovirus infection, unspecified; B34.8 Other viral infections of unspecified site; Z87.891 Personal history of nicotine dependence; Z20.822 Contact with and (suspected) exposure to COVID-19
CPT/HCPCS: 36415; 71045; 71275; 80048; 80053; 82550; 82553; 83605; 83690; 83735; 84145; 84484; 85025; 86140; 87040; 87070; 87205; 87633; 94640; 94660; 94762; 96365; 96366; 96375; 96376; 99284; 99291; J1650; J2060; J2930; J3475; J7613; Q9967